=== PATIENT | male | born 1990 | race Two or more races ===

== ENCOUNTER 2019-07-25 01:14 | Emergency (ER) | payer SELFPAY ==
[~2019-07-25] VITALS: Ht 172.7 cm; Wt 81.6 kg
[2019-07-25] VITALS (7 sets, daily range): BP systolic 118–135; BP diastolic 70–91
--- NOTE | 2019-07-25 01:15 | NUR ---
ED Nurse Note: Patient brought in to ER by [facility]AE[facility] from an [facility] clinic due to ETOH, patient presents with slurred speech. Patient appears to be calm and cooperative. No stated medical history. Breathing even and unlabored. Afebrile. VSS.
--- NOTE | 2019-07-25 02:12 | NUR ---
ED Nurse Note: Went down to CT.
[2019-07-25 02:15] LABS: BASOPHILS % (AUTO) 2.4 % (0.0-2.0); EOSINOPHILS % (AUTO) 0.5 % (0.0-3.0); HEMATOCRIT 47.7 % (42.0-52.0); HEMOGLOBIN 14.8 G/DL (14.2-18.0); LYMPHOCYTES % (AUTO) 26.2 % (20.0-45.0); MEAN CORPUSCULAR VOLUME 101 FL (80-99); MONOCYTES % (AUTO) 6.9 % (1.0-10.0); NEUTROPHILS % (AUTO) 63.9 % (45.0-75.0); PLATELET COUNT 485 K/UL (150-450); RED BLOOD COUNT 4.71 M/UL (4.70-6.10); WHITE BLOOD COUNT 8.7 K/UL (4.8-10.8)
[2019-07-25 02:19] LABS: ANION GAP 16 mmol/L (5-15); BLOOD UREA NITROGEN 14 mg/dL (7-18); CALCIUM 7.7 MG/DL (8.5-10.1); CARBON DIOXIDE 19 MMOL/L (21-32); CHLORIDE 106 MMOL/L (98-107); CREATININE 1.1 MG/DL (0.55-1.30); POTASSIUM 4.9 MMOL/L (3.5-5.1); SODIUM 141 MMOL/L (136-145)
[2019-07-25 02:23] LABS: ALBUMIN/GLOBULIN RATIO 0.5 (1.0-2.7); ALKALINE PHOSPHATASE 114 U/L (46-116); ASPARTATE AMINO TRANSFERASE 302 U/L (15-37); BILIRUBIN,TOTAL 0.7 MG/DL (0.2-1.0)
--- NOTE | 2019-07-25 02:25 | NUR ---
ED Nurse Note: Came back from CT.
[2019-07-25 02:41] LABS: ALANINE AMINOTRANSFERASE 99 U/L (12-78)
--- NOTE | 2019-07-25 03:16 | Diagnostic Imaging Report ---
Indication: Altered mental status Technique: Contiguous 5 mm thick transaxial imaging of the head obtained in a Siemens Sensation [address] scanner. Soft tissue and bone windows generated. Automatic Exposure Control was utilized. Total Dose length Product (DLP): 1411.[address] Dose Index Volume (CTDIvol): 70.38 mGy Comparison: none Findings: The size and configuration of the cortical sulci, basal cisterns, and ventricles are within normal limits for age. There is no mass effect, midline shift, or edema identified. There is no evidence of acute hemorrhage or abnormal intra-axial or extra-axial fluid collections. Calvarium is unremarkable. There may be soft tissue swelling over the left periorbital region. Correlate clinically. Impression: No mass effect, edema or acute bleed. [facility] has communicated the preliminary results to the Emergency Department. Their findings are largely concordant with this report. [place] [facility] [place] [employer] and the scans are performed using dose optimization techniques as appropriate to a performed exam including Automatic Exposure control.
--- NOTE | 2019-07-25 05:14 | NUR ---
ED Nurse Note: Patient able to walk to the restroom to urinate.
--- NOTE | 2019-07-25 06:58 | Emergency Room Report ---
History of Present Illness General Chief Complaint: Alcohol Intoxication Source: EMS Present Illness HPI 29-year-old male presents ED for evaluation. Brought in by EMS. Altered mental status. Slurred speech. Found outside AA tonight. On arrival patient unable to provide any additional history at this time. No history of whether patient fell and hurt himself. No reported nausea or vomiting. No other aggravating relieving factors. No other associated symptoms Allergies: Coded Allergies: No Known Allergies (Unverified , 07/25/19) Patient History Past Medical History: none Past Surgical History: none Pertinent Family History: none Social History: Reports: alcohol use; Denies: smoking, drug use Immunizations: UTD Reviewed Nursing Documentation: PMH: Agreed; PSxH: Agreed Nursing Documentation-PMH Past Medical History: No Stated History Review of Systems All Other Systems: negative except mentioned in HPI Physical Exam Vital Signs Date Time Temp Pulse Resp B/P (MAP) Pulse Ox O2 Delivery O2 Flow Rate FiO2 07/25/19 01:11 98.4 130 18 126/72 (90) 100 Room Air Sp02 EP Interpretation: reviewed, normal General Appearance: lethargic Head: normocephalic Eyes: bilateral eye normal inspection, bilateral eye PERRL ENT: normal ENT inspection Neck: normal inspection Respiratory: chest non-tender, lungs clear, normal breath sounds, speaking full sentences Cardiovascular #1: regular rate, rhythm, no edema Gastrointestinal: normal bowel sounds, non tender, soft, non-distended, no guarding, no rebound Rectal: deferred Genitourinary: no CVA tenderness Musculoskeletal: normal inspection Neurologic: other - lethargic Psychiatric: other - lethargic Skin: no rash Lymphatic: normal inspection Medical Decision Making Diagnostic Impression: Primary Impression: Substance abuse Additional Impression: Altered mental status Qualified Codes: R41.82 - Altered mental status, unspecified ER Course Hospital Course 29-year-old M presents to ED with altered mental status. Differential diagnoses include: Psychosis, EtOH, drug abuse Clinical course patient placed on stretcher. On hospital monitor. After initial history and physical ordered labs, IV fluids, CT brain. Labs reviewed-electrolytes okay, LFTs elevated, no leukocytosis, hemoglobin/ hematocrit stable CT brain shows no acute pathology Patient observed on hospital monitor with stable vitals. Is not clinically sober , awake alert oriented x3. Walking without difficulty. Will be discharged home. i. I feel this is a highly complex case requiring extensive working including EKG/Rhythm strip, Xray/CT/US, Blood/urine lab work, repeat exams while in ED, and administration of strong opiates/narcotics for pain control, admission to hospital or close patient follow up. Diagnosis - substance abuse, AMS Stable and discharged to home. Followup with PMD. Return to ED if symptoms recur or worsen Labs Test 07/25/19 01:41 White Blood Count 8.7 K/UL (4.8-10.8) Red Blood Count 4.71 M/UL (4.70-6.10) Hemoglobin 14.8 G/DL (14.2-18.0) Hematocrit 47.7 % (42.0-52.0) Mean Corpuscular Volume 101 FL (80-99) Mean Corpuscular Hemoglobin 31.4 PG (27.0-31.0) Mean Corpuscular Hemoglobin Concent 31.1 G/DL (32.0-36.0) Red Cell Distribution Width 14.0 % (11.6-14.8) Platelet Count 485 K/UL (150-450) Mean Platelet Volume 6.1 FL (6.5-10.1) Neutrophils (%) (Auto) 63.9 % (45.0-75.0) Lymphocytes (%) (Auto) 26.2 % (20.0-45.0) Monocytes (%) (Auto) 6.9 % (1.0-10.0) Eosinophils (%) (Auto) 0.5 % (0.0-3.0) Basophils (%) (Auto) 2.4 % (0.0-2.0) Sodium Level 141 MMOL/L (136-145) Potassium Level 4.9 MMOL/L (3.5-5.1) Chloride Level 106 MMOL/L (98-107) Carbon Dioxide Level 19 MMOL/L (21-32) Anion Gap 16 mmol/L (5-15) Blood Urea Nitrogen 14 mg/dL (7-18) Creatinine 1.1 MG/DL (0.55-1.30) Estimat Glomerular Filtration Rate > 60 mL/min (>60) Glucose Level 100 MG/DL (74-106) Calcium Level 7.7 MG/DL (8.5-10.1) Total Bilirubin 0.7 MG/DL (0.2-1.0) Aspartate Amino Transf (AST/SGOT) 302 U/L (15-37) Alanine Aminotransferase (ALT/SGPT) 99 U/L (12-78) Alkaline Phosphatase 114 U/L (46-116) Total Protein 6.1 G/DL (6.4-8.2) Albumin 2.0 G/DL (3.4-5.0) Globulin 4.1 g/dL Albumin/Globulin Ratio 0.5 (1.0-2.7) Salicylates Level 0.5 ug/mL (2.8-20) Acetaminophen Level < 2 MCG/ML (10-30) Serum Alcohol < 3 mg/dL CT/MRI/US Diagnostic Results CT/MRI/US Diagnostic Results : Imaging Test Ordered: CT Head Impression no acute process Last Vital Signs Date Time Temp Pulse Resp B/P (MAP) Pulse Ox O2 Delivery O2 Flow Rate FiO2 07/25/19 05:51 98.4 97 19 129/77 100 Room Air Status: improved Disposition: HOME, SELF-CARE Condition: Stable Referrals: NOT CHOSEN IPA/,REFERRING (PCP) Davi Guevara MD Jul 25, 2019 06:58
--- NOTE | 2019-07-25 07:15 | NUR ---
HAND-OFF: Report given to Urvashi GARCIA. No new orders at this time.
--- NOTE | 2019-07-25 08:07 | NUR ---
ED Nurse Note: pt sleeping in room, still drowsy to amb and be dc home.
--- NOTE | 2019-07-25 09:45 | NUR ---
ED Nurse Note: pt amb with one rn assist to brp. 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 she relates she is at work but will call her sister to get pt if able. pt back to rm.
--- NOTE | 2019-07-25 10:35 | NUR ---
ED Nurse Note: pt amb to brp with slightly unsteady gait. relates no oher person to notify to pick him up.. moved to hallway as no need for telemetry at this time
--- NOTE | 2019-07-25 12:30 | NUR ---
ED Nurse Note: pt able to amb unsteady gait to brp denies having another person to call for ride home. pt unable to answer orientaton questions at this time. no n/v/dyspnea
--- NOTE | 2019-07-25 15:26 | NUR ---
ED Nurse Note: pt remains unsteady gait. pt continues to be difficult to orient. does awaken slightly easier than previous hours in ed. pt given sandwich po, declines it but does request water.
--- NOTE | 2019-07-25 15:28 | NUR ---
ED Nurse Note: pt does eat sandwich.
--- NOTE | 2019-07-25 17:00 | NUR ---
ED Nurse Note: pt desiring to be d/c'd declines to participate in COG assesments. amb steady gait out of ed. refuses to sign dc aci. pt is oriented to self and place and year
== END 2019-07-25 17:00 | disposition home or self-care (01) ==
LOC: EDBD 01:14 → EMR 01:25
DX: R41.82 Altered mental status, unspecified (principal); F19.10 Other psychoactive substance abuse, uncomplicated; F10.10 Alcohol abuse, uncomplicated
CPT/HCPCS: 36415; 70450; 80053; 85025; 96360; 99284; G0480; 80329